=== PATIENT | male | born 1970 | race Caucasian/White ===

== ENCOUNTER 2021-10-30 15:14 | Emergency (ER) | payer OTHER ==
[~2021-10-30] VITALS: Ht 177.8 cm; Wt 102.1 kg
[2021-10-30] MEDS ORDERED: AUGMENTIN 875-1 EACH PO (19:15)
== END 2021-10-30 19:29 | disposition home or self-care (01) ==
LOC: ED 15:14
DX: R22.1 Localized swelling, mass and lump, neck (principal)
CPT/HCPCS: 70491; 80053; 85025; 99284-25; J0696; Q9967